=== PATIENT | male | born 1975 | race American Indian/Alaskan Native ===

== ENCOUNTER 2018-02-27 17:01 | Emergency (ER) | payer OTHER ==
[2018-02-27 17:20] VITALS: BP 137/86; PULSE 77; RESP 18; TEMP 98.6; O2SAT 95
[2018-02-27] MEDS ORDERED: diaZEpam 10 mg/2 ml Inj IM ONE (17:46)
[2018-02-27] MEDS ORDERED: Lidocaine 5% Patch TD STA (17:47)
[2018-02-27] MEDS ORDERED: Lidocaine 5% Patch TD ONE (17:48)
--- NOTE | 2018-02-27 17:51 | C.PDOC ---
History Of Present Illness 42 y/o male with no known medical history c/o right sided neck and shoulder pain that he woke with this morning and is worsening as the day progresses. pt unable to turn head. pt reports going to gym yesterday. no numbness or tingling. Time Seen by Provider: 02/27/18 17:22 Chief Complaint (Nursing): Upper Extremity Problem/Injury History Per: Patient History/Exam Limitations: no limitations Onset/Duration Of Symptoms: Days (1) Current Symptoms Are (Timing): Worse Quality: "Pain" Severity: Severe Exacerbating Factor(s): Nothing, Strenuous Use Of Affected Area, Movement Past Medical History Reviewed: Historical Data, Nursing Documentation, Vital Signs Vital Signs: Last Vital Signs Temp 98.6 F 02/27/18 17:17 Pulse 77 02/27/18 17:17 Resp 18 02/27/18 17:17 BP 137/86 02/27/18 17:17 Pulse Ox 95 02/28/18 12:01 - Medical History PMH: No Chronic Diseases Family History: States: Unknown Family Hx - Social History Hx Tobacco Use: Yes Hx Alcohol Use: Yes Hx Substance Use: No - Immunization History Hx Tetanus Toxoid Vaccination: No Hx Influenza Vaccination: No Hx Pneumococcal Vaccination: No Review Of Systems Constitutional: Negative for: Fever, Chills ENT: Negative for: Ear Pain, Throat Pain Cardiovascular: Negative for: Chest Pain Gastrointestinal: Negative for: Nausea, Vomiting, Abdominal Pain Musculoskeletal: Positive for: Neck Pain, Shoulder Pain Skin: Negative for: Rash, Lesions Neurological: Negative for: Weakness, Numbness Physical Exam - Physical Exam Appears: Non-toxic, In Acute Distress (painful) Skin: Warm, Dry, No Rash Head: Atraumatic, Normacephalic Neck: Decreased ROM (secondary to muscle spasm and pain), No Midline Cervical Tenderness, Paracervical Tenderness (right side, spasm palpated, right trapezius tender) Back: No Vertebral Tenderness Extremity: Normal ROM, No Tenderness Pulses: Left Radial: Normal, Right Radial: Normal Neurological/Psych: Oriented x3, Normal Speech, Normal Cognition, Normal Motor, Normal Sensation ED Course And Treatment O2 Sat by Pulse Oximetry: 95 Medical Decision Making Medical Decision Making: pt with right sided neck/shoulder pain, spasm palpated, tx with toradol and valium, re-assess. 1824 pt feeling much better after toradol and valium, able to move neck more. will d/c home with muscle relaxant and nsaids. f/u med clinic. Disposition Counseled Patient/Family Regarding: Diagnosis, Need For Followup, Rx Given - Disposition Referrals: [facility] [Outside] Disposition: HOME/ ROUTINE Disposition Time: 18:26 Condition: IMPROVED Additional Instructions: Please take lidoderm patch off in 12 hours. Take naproxen and muscle relaxant as prescribed. Do not drive when taking muscle relaxant. Cold compresses to to painful area several times a day. Follow up with your doctor or in medical clinic in 1-2 days. Return to ER for any worse symptoms. Prescriptions: Cyclobenzaprine [Cyclobenzaprine HCl] 10 mg PO Q8 #9 tab Naproxen 500 mg PO BID #20 tab Instructions: Muscle Spasms (DC), Torticollis (DC) Forms: General Discharge Instructions, [facility] (Croatian), Work Excuse - Clinical Impression Clinical Impression: Neck muscle spasm, Torticollis, acute
[2018-02-27] MEDS ORDERED: diaZEpam 10 mg/2 ml Inj ONE (17:53)
== END 2018-02-27 18:35 | disposition home or self-care (01) ==
LOC: C.ER 17:01
DX: M43.6 Torticollis (principal); M62.838 Other muscle spasm; Z72.0 Tobacco use
CPT/HCPCS: 96372; 99283; J1885; J3360